=== PATIENT | male | born 1945 | race Caucasian/White ===

== ENCOUNTER → 2017-07-04 | Outpatient (CLI) | payer OTHER, MEDICARE ==
[2017-07-04 09:38] LABS: INTERNATIONAL RATION (INR) 1.16; PROTHROMBIN TIME 15.6 SEC (11.4-15.4)
[2017-07-04 09:39] LABS: PARTIAL THROMBOPLASTIN TIME 39.1 SEC (23.5-35.8)
== END ==
LOC: OD 08:33
PROVIDERS: ATTEND Physician Assistant
DX: R79.1 Abnormal coagulation profile (principal); Z79.01 Long term (current) use of anticoagulants
CPT/HCPCS: 36415; 85610; 85730

== ENCOUNTER → 2017-07-18 | Outpatient (CLI) | payer OTHER, MEDICARE ==
[2017-07-18 08:51] LABS: INTERNATIONAL RATION (INR) 1.21; PARTIAL THROMBOPLASTIN TIME 34.3 SEC (23.5-35.8); PROTHROMBIN TIME 16.1 SEC (11.4-15.4)
== END ==
LOC: OD 08:02
PROVIDERS: ATTEND Physician Assistant
DX: M51.36 Other intervertebral disc degeneration, lumbar region (principal); G89.4 Chronic pain syndrome; E09.40 Drug or chemical induced diabetes mellitus with neurological complications with diabetic neuropathy, unspecified; Z79.01 Long term (current) use of anticoagulants
CPT/HCPCS: 36415; 85610; 85730